=== PATIENT | male | born 1950 | race Caucasian/White ===

== ENCOUNTER 2017-07-06 15:49 | Inpatient (IN) ==
[2017-07-06] MEDS ORDERED: 0.9 % Sodium Chloride 1,000 ML IVC ONE (17:08)
--- NOTE | 2017-07-06 17:28 | Emergency Department Note ---
Disposition Clinical Impression: Ureterolithiasis, Obstructive uropathy Hydronephrosis Qualifiers: Hydronephrosis type: with renal calculous obstruction Qualified Code(s): N13.2 - Hydronephrosis with renal and ureteral calculous obstruction Disposition: Admitted As Inpatient Condition: Fair Time of Disposition: 18:00 Abdominal Pain HPI - General Chief Complaint: ED Abdominal Pain Stated Complaint: [facility]-Kidney Stone Time Seen by Provider: 07/06/17 16:19 Source: EMS Nursing Notes Reviewed: Yes Vital Signs Reviewed: Yes - History of Present Illness HPI Narrative: 67 y/o male presents to the ED via EMS from [facility] ED for left flank pain with associated N/V 2/2 ureteralilthiasis x 4 days ago found on CT in the ED here at [place]. Pt tried outpatient treatment but is unable to tolerate pain and vomiting. Pt has not been able to tolerate PO intake for the last 3 days. Pain was still 10/10 when he was seen at the [facility] ED and was treated with IV pain meds. Repeat CT shows Left 7mm stone at the UVJ. Pt currently states pain is controlled. Pt is a diabetic. Pain Scale: 0 - Related Data Previous Rx's Medication Instructions Recorded OxyCODONE/APAP 5/325 [Percocet 1 each PO Q6HR PRN 3 Days #15 07/03/17 5/325 MG] tablet Promethazine [Phenergan] 25 mg PO Q8HR #9 tablet 07/03/17 Allergies Allergy/AdvReac Type Severity Reaction Status Date / Time metformin Allergy Nausea Verified 07/06/17 15:51 All systems ED: reviewed and negative except as stated. Review of Systems: As Per HPI Constitutional: Denies: fever, chills, weakness Eyes: Denies: vision change ENT ED: Denies: congestion Cardiovascular: Denies: chest pain Respiratory: Denies: cough, dyspnea Gastrointestinal: Reports: abdominal pain, nausea, vomiting. Denies: diarrhea Musculoskeletal: Reports: back pain Abdominal Pain PMH - Past Medical History Medical history: Reports: diabetes, hypertension, kidney stones Male Surgical History: Reports: herniorrhaphy, orthopedic, other Psychiatric history: Reports: no psych history - Social History Smoking status: Never smoker Alcohol use: Reports: none Drug use: Reports: none Physical Exam Vital Signs Temperature 98.3 F 07/06/17 15:52 Pulse Rate 65 07/06/17 15:52 Respiratory Rate 18 01/12/18 15:52 Blood Pressure 130/93 07/06/17 15:52 O2 Sat by Pulse Oximetry 97 07/06/17 15:52 Temperature 98.5 F 07/06/17 18:40 Pulse Rate 62 07/06/17 18:40 Respiratory Rate 16 07/06/17 18:40 Blood Pressure 113/73 07/06/17 18:40 O2 Sat by Pulse Oximetry 96 07/06/17 18:40 Oxygen Delivery Oxygen Delivery Room Air 67 y/o male who is alert and oriented x3 and in no acute distress. VS normal with exception of bp of 130/93. Pt is nontoxic appearing but has dry mucous membranes. repeat bp 113/73 - General Limitations: no limitations General appearance: alert, in no apparent distress - Head Head exam: atraumatic, normocephalic, normal inspection - Eye Eye exam: Present: normal appearance, PERRL, EOMI - ENT ENT exam: normal exam, normal oropharynx, mucous membranes moist - Neck Neck exam: Present: normal inspection, full ROM, trachea midline - Chest Chest inspection: Present: normal inspection, symmetric chest wall rise - Respiratory Respiratory exam: Present: normal lung sounds bilaterally - Cardiovascular Cardiovascular exam: Present: regular rate, normal rhythm, normal heart sounds - Abdominal Exam Abdominal exam: Present: soft, tenderness ( left flank tenderness to palpation) . Absent: distention, guarding, rebound, rigidity - Back Exam Back exam: Present: normal inspection, full ROM, CVA tenderness (L). Absent: tenderness, CVA tenderness (R) - Neurological Exam Neurological exam: Present: alert, oriented X3 - Skin Skin exam: Present: warm, dry, intact, normal color Course Vital Signs Temperature 98.3 F 07/06/17 15:52 Pulse Rate 65 07/06/17 15:52 Respiratory Rate 18 07/06/17 15:52 Blood Pressure 130/93 07/06/17 15:52 O2 Sat by Pulse Oximetry 97 07/06/17 15:52 Temperature 98.5 F 07/06/17 18:40 Pulse Rate 62 07/06/17 18:40 Respiratory Rate 16 07/06/17 18:40 Blood Pressure 113/73 07/06/17 18:40 O2 Sat by Pulse Oximetry 96 07/06/17 18:40 Oxygen Delivery Oxygen Delivery Room Air Abdominal Pain - MDM Narrative Medical decision making narrative: Ureterolithiasis with failed outpatient management. Dr. Donohue of Urology states he will see the Pt first thing in the morning and extract the stone. He advises to tell the patient he will be the 2nd case in the morning. Urine tested at [place] and was neg for UTI Pt started on IV NS and admitted to Hospitalist. Pt understands and agrees to treatment and plan. - Medical Records Medical records reviewed: Yes I reviewed the patient's medical records. Attestation Statement - Attestation Attestation: I examined this patient and my medical decision-making was reviewed with the Resident Physician. I agree with the documented findings, disposition and treatment plan as described except to the extent set forth below. Pain-free at the time of my evaluation. Waiting for bed on the floor.
[2017-07-06] MEDS ORDERED: Ondansetron 4 MG/2 ML VIAL IVP PRN (19:41)
[2017-07-06] MEDS ORDERED: Naloxone 0.4 MG/ML INJ IVP PRN (19:41)
[2017-07-06] MEDS ORDERED: traMADol 50 MG TABLET PO PRN (19:48)
[2017-07-06] MEDS ORDERED: *HR* Morphine 2 MG/ML SYRINGE IVP PRN (19:49)
[2017-07-06] MEDS ORDERED: Dextrose Gel 15 GM/37.5 ML TUBE PO PRN ×2 (19:50)
[2017-07-06] MEDS ORDERED: *HR* Dextrose 50 % in Water (Syg) 50 ML SYRINGE IVP PRN (19:50)
[2017-07-06] MEDS ORDERED: D5% in Water 1,000 ML IVC PRN (19:50)
--- NOTE | 2017-07-06 20:03 | Urology - Consult Note ---
Date of Encounter: 07/06/17 Time of Encounter: 07:00 - Assessment and Plan (1) Ureteral stone with hydronephrosis Current Visit: Yes Status: Acute Assessment and plan: Patient has a 7 mm distal left ureteral stone which is resulted in 2 emergency room visits. Transferred to [facility] for surgical management because of intractable pain. Only appropriate option because the stone is at the ureteral vesicle junction is a ureteroscopic stone extraction with holmium laser lithotripsy and ureteral stent placement. The procedure was discussed in detail including potential risks of stricture, injury to the urinary tract, infection, stent discomfort or complications, reaction to contrast. He wishes to proceed. Trial of passage was discussed but he is not comfortable with this plan as he has required 2 emergency room visits for pain. Urology CN:HPI Consult date: 07/06/17 Reason for consult Urology: Hydronephrosis History of present illness: 67 yo transferred from the [place] with a 7 mm distal ureteral stone with hydronephrosis. Intractable pain. first presented days ago. here for surgical management Past Med Surg Social Fam HX - Past Medical History Medical history: COPD, diabetes, kidney stones Psychiatric history: no psych history - Social History Smoking Status: Former smoker Smokeless Tobacco Status: Yes (Vape) Alcohol use: rarely Drug use: none - Family History Father Living Status: Age at : 71 Cause of : Cancer Hx Family Cancer: Yes (Pancreatic with mets) Mother Living Status: Age at : 94 Hx Family Neurologic Disorders: Yes (Stroke) Medications and Allergies OxyCODONE/APAP 5/325 [Percocet 5/325 MG] 1 each PO Q6HR PRN 3 Days #15 tablet [Rx] Promethazine [Phenergan] 25 mg PO Q8HR #9 tablet 07/03/17 [Rx] 3 Allergy/AdvReac Type Severity Reaction Status Date / Time metformin Allergy Nausea Verified 07/06/17 15:51 Review of Systems - Constitutional no fever(s), no malaise - EENT Nose, mouth and throat: no dizziness - Cardiovascular no chest pain - Respiratory no cough - Gastrointestinal abdominal pain, nausea - Genitourinary flank pain, hematuria, urinary frequency - Musculoskeletal back pain - Integumentary no erythema - Neurological no confusion - Psychiatric no anxiety - Hematologic/Lymphatic no easy bleeding - Allergic/Immunologic no throat swelling Exam Initial Vital Signs Temp Pulse Resp BP Pulse Ox 98.3 F 65 18 130/93 97 07/06/17 15:52 07/06/17 15:52 07/06/17 15:52 07/06/17 15:52 07/06/17 15:52 - General physical appearance Present: well developed, no distress - Eyes Present: PERRL - ENT Present: normal nares - Neck Present: no masses - Respiratory Present: normal respiratory effort - Cardiovascular Cardiovascular exam IM: RRR - Abdomen Abdomen: Present: soft, suprapubic tenderness. Absent: masses - Integumentary Present: no rash - Neurologic Present: normal coordination. Absent: disoriented, confused - Additional Findings mild CVA tenderness Urology Results - Labs All other labs normal. Consult Discharge Plan - Plan [facility]errals: [facility] Care Provider[facility] - Chavez Alas [Family Provider] -
--- NOTE | 2017-07-06 20:07 | Internal Med History&Physical ---
<Marcela Alonzo S - Last Filed: 07/06/17 20:16> Date of Encounter: 07/06/17 Time of Encounter: 20:01 Assessment and Plan (1) Diabetes mellitus Current visit: Yes Status: Acute Hold oral medications Low-dose sliding scale insulin before meals and at bedtime Qualifiers: Diabetes mellitus type: type 2 Diabetes mellitus complication status: without complication Diabetes mellitus group home insulin use: without group home use Qualified Code(s): E11.9 - Type 2 diabetes mellitus without complications (2) Ureteral stone with hydronephrosis Current visit: Yes Status: Acute Urology consult with plan for cystoscopy and possible stone extraction in the a.m. EKG and lab work obtained for preop Nothing by mouth after midnight Pain control IV fluids A.m. lab work (3) DVT prophylaxis Current visit: Yes Status: Acute Teds and SCDs Internal Medicine - H&P: HPI Chief complaint: kidney stone with pain Admitted From: Emergency Dept Plans for Post Hospital Care: Home History of present illness: Mr. Greco is a 67 year old male This is a 67-year-old gentleman who presented from the OR to our ER with a 7 mm left kidney stone distal ureter at the uterervesicular border with significant hydronephrosis. Patient stated Sunday evening about 4:30 the pain started and lasted throughout the night he was directed by the OR to come to [facility]. He was given pain medication [facility]. He stated the pain was pretty good until last evening when the pain started again about 4:30 PM and lasted throughout the night. He went to the OR and was sent over here for urology evaluation and inpatient treatment of intractable pain. He has a history significant for diabetes mellitus, vitamin D deficiency, neuropathy, and psoriasis. He is allergic to metformin. He understands he will be nothing by mouth after midnight with urology to see him tomorrow with a pending cystoscopy and possible stone extraction. Discussed the plan of care and he has no further questions. Past Med Surg Social Fam HX - Past Medical History Medical history: diabetes, kidney stones Psychiatric history: no psych history - Social History Smoking Status: Former smoker Smokeless Tobacco Status: Yes (Vape) Alcohol use: rarely Drug use: none Occupational status: retired Current living situation: Home - Independent Activity Level: Independent ambulation - Family History Father Living Status: Age at : 71 Cause of : Cancer Hx Family Cancer: Yes (Pancreatic with mets) Mother Living Status: Age at : 94 Hx Family Neurologic Disorders: Yes (Stroke) - Additional Family History Additional family history: Reviewed and noncontributory to this event Internal Medicine - H&P: Meds OxyCODONE/APAP 5/325 [Percocet 5/325 MG] 1 each PO Q6HR PRN 3 Days #15 tablet [Rx] Promethazine [Phenergan] 25 mg PO Q8HR #9 tablet 07/03/17 [Rx] 3 Allergy/AdvReac Type Severity Reaction Status Date / Time metformin Allergy Nausea Verified 07/06/17 15:51 All Systems PM: A 10-system review of systems was performed and is negative for pertinent findings except as documented above in the HPI. - Constitutional Constitutional: night sweats, no chills, no fever(s) - EENT Eyes: no change in vision, no discharge, no pain, no photophobia Ears: no ear discharge, no ear pain, no tinnitus Nose, mouth and throat: no dysphagia, no nasal discharge, no neck pain, no sore throat - Cardiovascular Cardiovascular ROS IM: no chest pain, no diaphoresis, no dyspnea, no lightheadedness, no palpitations, no syncope - Respiratory Respiratory: no cough, no dyspnea, no wheezing, no excessive phlegm production - Gastrointestinal Gastrointestinal: no abdominal pain, no diarrhea, no hematemesis, no hematochezia, no melena, no nausea, no vomiting - Genitourinary Genitourinary ROS male: flank pain - Musculoskeletal Musculoskeletal ROS IM: no numbness, no tingling - Integumentary Integumentary IM: no rash, no unusual bruising - Neurological Neurological ROS: no confusion, no convulsions, no focal weakness, no numbness, no tingling, no tremor(s) - Hematologic/Lymphatic Hematologic/Lymphatic: no easy bruising - Constitutional Vitals: Temp Pulse Resp BP Pulse Ox 98.5 F 62 16 113/73 96 07/06/17 18:40 07/06/17 18:40 07/06/17 18:40 07/06/17 18:40 07/06/17 18:40 General appearance: Present: A&O X 3, no acute distress, answers questions appropriately - Head Head exam: Present: atraumatic, normocephalic - Eye Eye exam: Present: conjuntiva pink, sclera anicteric - Neck Neck exam general surgery: Present: supple, trachea midline. Absent: lymphadenopathy - Respiratory Respiratory exam: Present: CTAB. Absent: accessory muscle use, rales, rhonchi, wheezes - Cardiovascular Cardiovascular exam: Present: RRR, +S1, +S2. Absent: diastolic murmur, gallop, rubs, systolic murmur - GI/Abdominal GI/Abdominal exam: Present: normal bowel sounds, soft, no peritoneal signs. Absent: distended, tenderness - Extremities Exam Extremities exam: Present: warm, radial pulses palpable and symmetrical. Absent : calf tenderness, cyanotic, pedal edema - Neurological Exam Neurological exam: Present: oriented X3, no focal deficits. Absent: pronater drift, facial droop, speech deficit - Skin Skin exam: Present: dry, intact, warm Internal Med - H&P Results - Labs Labs: Calcium 8.3, sodium 140 potassium 3.9, chloride 107, glucose 103 BU in 25 creatinine 1.55 EGFR 44.9 WBCs 8.7 hemoglobin 16.1 hematocrit 47.1 platelets 170 neutrophils 72.3 lymphs 13.6 <Keisha Cui - Last Filed: 07/07/17 05:58> Date of Encounter: 07/06/17 Internal Medicine - H&P: HPI History of present illness: Mr. Greco is a 67 year old male All Systems PM: A 10-system review of systems was performed and is negative for pertinent findings except as documented above in the HPI. - Constitutional Vitals: Temp Pulse Resp BP Pulse Ox 98.2 F 63 16 105/67 95 07/07/17 03:32 07/07/17 03:32 07/07/17 03:32 07/07/17 03:32 07/07/17 03:32 Internal Med - H&P Results - Labs CBC & Chem 7: 07/07/17 03:02 Labs: BMP 07/07/17 03:02 Sodium 139 Potassium 3.7 Chloride 109 H Carbon Dioxide 24 BUN 23 Creatinine 1.10 Glucose 117 H Calcium 8.0 L Liver Function 07/07/17 Range/Units 03:02 Total Bilirubin 0.6 (0.3-1.0) mg/dL AST 11 L (13-39) Units/L ALT 11 (7-52) Units/L Alkaline Phosphatase 43 (34-104) Units/L Albumin 3.0 L (3.5-5.7) g/dL - Attending Attestation Patient is a 67y/o male admitted for flank pain secondary to ureteral stone. Pt seen and examined at bedside. Urology evaluation requested and scheduled for cystoscopy and possible stone extraction in am continue IV fluids, pain control hx of DM, holding oral antihyperglycemic agents, sliding scale insulin algorithm. Accuchecks q4h while NPO and ACHS once diet is resumed DVt ppx with SCD Case discussed with FUNMILAYO Alonzo, I agree with her documented findings, assessment, and plan except as listed above.
[2017-07-06] MEDS ORDERED: Insulin LISPRO 300 UNITS/3 ML VIAL SQ SCH (21:00)
[2017-07-06] MEDS: 0.9 % Sodium Chloride 1,000 ML IVC SCH (22:06)
[2017-07-07 04:16] LABS: INR 1.1; Prothrombin Time 12.3 Seconds (9.4-12.1)
[2017-07-07 04:17] LABS: Activated Partial Thrombo Time 28.8 Seconds (26.0-36.0)
[2017-07-07 04:22] LABS: Alanine Aminotransferase 11 Units/L (7-52); Albumin/Globulin Ratio 1.2 (1.1-2.2); Alkaline Phosphatase 43 Units/L (34-104); Aspartate Amino Transferase 11 Units/L (13-39); BUN/Creatinine Ratio 21 (6-26); Bilirubin,Total 0.6 mg/dL (0.3-1.0); Blood Urea Nitrogen 23 mg/dL (8-23); Carbon Dioxide 24 mEq/L (23-29); Chloride 109 mEq/L (98-107); Globulin 2.6 g/dL (2.4-3.5); Glucose 117 mg/dL (70-105); Osmolality,Calculated 293 (280-300); Potassium 3.7 mEq/L (3.5-5.1); Sodium 139 mEq/L (136-145); Total Protein 5.6 g/dL (6.4-8.9); eGFR For African Americans > 60 (> 60); eGFR For Non-African Americans > 60 (> 60)
[2017-07-07] MEDS: Insulin LISPRO 300 UNITS/3 ML VIAL SQ SCH ×2 (07:17→10:06)
[2017-07-07] MEDS ORDERED: Insulin LISPRO 300 UNITS/3 ML VIAL SQ SCH ×2 (07:30→14:00)
[2017-07-07] MEDS: 0.9 % Sodium Chloride 1,000 ML IVC SCH (07:42)
[2017-07-07 08:17] LABS: Basophils # 0.1 K/mcL (0.0-0.2); Basophils % 0.7 %; Eosinophils # 0.6 K/mcL (0.0-0.6); Eosinophils % 8.9 %; Hematocrit 41.3 % (37.5-50.1); Hemoglobin 13.7 g/dL (12.9-16.9); Immature Granulocytes % 0.1 % (0-4); Lymphocytes # 1.6 K/mcL (0.6-4.6); Lymphocytes % 23.4 %; Mean Corpuscular HGB Conc 33.2 g/dL (31.6-35.5); Mean Corpuscular Hemoglobin 29.6 pg (28.0-33.3); Mean Corpuscular Volume 89.2 fL (83.0-100.0); Monocytes # 0.7 K/mcL (0.0-1.3); Monocytes % 10.9 %; Neutrophils # 3.8 K/mcL (1.6-8.9); Platelet Count 153 K/mcL (140-400); Red Blood Count 4.63 M/mcL (4.19-5.50); Red Cell Distribution Width 13.2 % (11.5-14.5)
[2017-07-07] MEDS ORDERED: *HR* FentaNYL (PF) 100 MCG/2 ML VIAL ONE (08:29)
[2017-07-07] MEDS ORDERED: Ondansetron 4 MG/2 ML VIAL ONE (08:29)
[2017-07-07] MEDS ORDERED: *HR* Propofol 200 MG/20 ML VIAL IVP ONE (08:29)
[2017-07-07] MEDS ORDERED: Lidocaine -MPF 2% 2 ML VIAL ONE (08:29)
[2017-07-07] MEDS ORDERED: Dexamethasone 4 MG/ML VIAL ONE (08:29)
[2017-07-07] MEDS ORDERED: Famotidine 20 MG/2 ML VIAL ONE (08:48)
[2017-07-07] MEDS ORDERED: Acetaminophen IV 1,000 MG/100 ML INFUS..BTL ONE (08:48)
--- NOTE | 2017-07-07 08:49 | Operative Note ---
Date of procedure: 07/07/17 Pre-op diagnosis: left 7 mm distal ureteral stone Post-op diagnosis: same Procedure: left ureteroscopic stone extraction with holmium laser left retrograde pyelogram left JJ stent placement Anesthesia: GETA Surgeon: Timmy Donohue Was there an blacksmith assistant present: No Estimated blood loss (cc): 0 Specimen: stone fragments Condition: stable Disposition: PACU Procedure in Detail: PROCEDURE IN DETAIL: Patient was taken back to the operating room, positioned supine on the operating table. Anesthesia was applied without complication. They were moved into dorsal lithotomy. Careful attention was maintained to cushion all pressure points for patient's safety. They were prepped and draped in sterile fashion. Time-out was performed with the proper patient and procedure. A 21-[place] rigid cystoscope was inserted into the bladder without difficulty. Systematic examination of bladder revealed no abnormalities. The ureteral orifice was cannulated using a 5-[place] Citizen ureteral Catheter and a retrograde pyelogram was performed using Isovue. A filling defect was identified which corresponded to the stone. At that point, a zip wire was placed through the 5-[place] Citizen and confirmed in the renal pelvis with fluoroscopy. An 8-10 dilator was then placed over the zip wire to passively dilate the ureteral orifice. A semi-rigid ureteroscope was carefully inserted into the bladder and guided into the ureteral oriface. At that point, the stone was encountered and I felt that it required fragmentation for safe extraction. A 200 micron holmium laser fiber on a setting of 8 and 800 was used to fragment the stone into multiple pieces. The fragments were individually basketed out of the ureter with a 1.9 tipless basket. All stone in the ureter was removed. A 4.8 x 26 ureteral stent was placed over the zip wire under fluoroscopy without complication. The bladder was drained along with the stone fragments. They were collected and sent for stone analysis. The string was left attached to the stent and secured to the patient for easy removal in approximately 72 hours
--- NOTE | 2017-07-07 08:51 | Event Note ---
Date of Encounter: 07/07/17 Time of Encounter: 08:49 Patient status post stone extraction and stent placement. If patient's symptoms are controlled, okay to discharge today. I recommend discharging the patient with pain medication and Pyridium. No antibiotics necessary. Follow-up Sunday or Sunday for stent removal in the urology office. Patient can remove stent at home if he desires by pulling the string until the entire stent is out.
--- NOTE | 2017-07-07 08:52 | Anesthesia Evaluation PreOp ---
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: Denies Any Significant HX Other Medical History: Diabetes Type II (accu check 97) Anesthesia History: No Prior Anesthetic Complications Alcohol Use: none Drug use: none Medications and Allergies OxyCODONE/APAP 5/325 [Percocet 5/325 MG] 1 each PO Q6HR PRN 3 Days #15 tablet [Rx] Promethazine [Phenergan] 25 mg PO Q8HR #9 tablet 07/03/17 [Rx] 3 Allergy/AdvReac Type Severity Reaction Status Date / Time metformin Allergy Nausea Verified 07/06/17 15:51 - Meds/Allergy Pre-op Review Medications Reviewed: Yes Allergies Reviewed: Yes Beta Blockers on Current Med List: No Anesthesia Results - Labs 07/07/17 03:02 07/07/17 03:02 Anesthesia Exam O2 Sat Height 1.93 m Height 1.93 m Weight 125.1 kg Weight 117.48 kg O2 Sat by Pulse Oximetry 92 O2 Sat by Pulse Oximetry 95 O2 Sat by Pulse Oximetry 94 O2 Sat by Pulse Oximetry 96 O2 Sat by Pulse Oximetry 97 Vital Signs Temp Pulse Resp BP Pulse Ox 98.3 F 65 18 130/93 97 07/06/17 15:52 07/06/17 15:52 07/06/17 15:52 07/06/17 15:52 07/06/17 15:52 Height: 6'4 Weight: 275 lbs NPO (# of Hours): [place] Pain Scale: 0 - HEENT Pupil (Motor): Pupils equal, EOMI Mallampati: II Teeth: Normal Oral Opening: Greater than 3 - MORNING [employer]ER LOC: Oriented [employer]ER Motor: Normal RUE, Normal LUE, Normal RLE, Normal LLE, Normal Face [employer]ER Sensory: Normal: RUE, LUE, RLE, LLE, Face - Cardiac Rhythm: Regular Murmur: None JVD: No Carotid Bruit: No - Pulmonary Breath Sounds: bilateral Clear Respiratory Effort: Symmetrical Anesthesia Assess/Plan ASA Score: 2 Modified [place] Scale for Level of Consciousness: Cooperative, oriented, and tranquil Anesthetic Plan: General Monitoring Plan: Standard Monitors Recovery Plan: PACU (Discussed GA, agrees to proceed)
[2017-07-07] MEDS ORDERED: EPHEDrine 50 MG/ML VIAL ONE (09:35)
[2017-07-07] MEDS ORDERED: ceFAZolin 2,000 MG in Water for inj. (sterile) 20 ML IVP ONE (09:37)
--- NOTE | 2017-07-07 10:19 | Anesthesia Evaluation Post Op ---
Date of Encounter: 07/07/17 Time of Encounter: 10:30 - Vital Signs Vital Signs: Vital Signs/O2 Sat/Glucose, Most Current Temp Pulse Resp BP Pulse Ox 07/07/17 10:09 80 14 114/72 92 07/07/17 09:59 97 F L 80 12 110/69 95 07/07/17 07:34 98.8 F 66 16 115/74 92 - Lungs Lungs: Clear Ascult./Percussion - Airway Airway: Non-obstructed - Cardiovascular Regular Rate - Mental Status Mental Status: Alert & Oriented, Answers Appropriately - Pain Pain Scale: 1 - Nausea Vomiting Nausea Vomiting: Not Present - Hydration Hydration: Ice chips - Discharge PostOp Status: Transfer Patient to floor
[2017-07-07] MEDS ORDERED: D5% in Water 1,000 ML IVC PRN (11:01)
[2017-07-07] MEDS ORDERED: Ondansetron 4 MG/2 ML VIAL IVP PRN (11:01)
[2017-07-07] MEDS ORDERED: *HR* OxyCODONE/APAP 5/325 TABLET PO PRN (11:01)
[2017-07-07] MEDS ORDERED: *HR* Dextrose 50 % in Water (Syg) 50 ML SYRINGE IVP PRN (11:01)
[2017-07-07] MEDS ORDERED: *HR* Morphine 2 MG/ML SYRINGE IVP PRN (11:01)
[2017-07-07] MEDS ORDERED: Dextrose Gel 15 GM/37.5 ML TUBE PO PRN ×2 (11:01)
[2017-07-07] MEDS ORDERED: 0.9 % Sodium Chloride 1,000 ML IVC SCH (11:01)
[2017-07-07] MEDS ORDERED: Naloxone 0.4 MG/ML INJ IVP PRN (11:01)
[2017-07-07] MEDS ORDERED: Ketorolac 15 MG/ML VIAL IVP PRN (11:01)
--- NOTE | 2017-07-07 12:59 | Discharge Summary ---
Date of Encounter: 07/07/17 Time of Encounter: 12:57 - Discharge Diagnosis (1) Ureteral stone with hydronephrosis Priority: Primary Status: Acute Comments: Left ureteral stone 7 mm with hydronephrosis status post stone extraction and stent placement. (2) Diabetes mellitus Priority: Secondary Status: Acute Qualifiers: Diabetes mellitus type: type 2 Diabetes mellitus complication status: without complication Diabetes mellitus fdc insulin use: without fdc use Qualified Code(s): E11.9 - Type 2 diabetes mellitus without complications (3) Obstructive uropathy Priority: Primary Status: Acute - Discharge Medications Prescriptions: OxyCODONE/APAP 5/325 [Percocet 5/325 MG] 1 each PO Q4HR PRN #25 tablet PRN Reason: Moderate Pain Phenazopyridine [Pyridium] 200 mg PO TID PRN #20 tablet PRN Reason: See Comments Home Medications: Empagliflozin [Jardiance] 10 mg PO DAILY 07/07/17 [History] GlipiZIDE [Glipizide Xl] 5 mg PO DAILY 07/07/17 [History] Lisinopril [Zestril] 5 mg PO DAILY 07/07/17 [History] OxyCODONE/APAP 5/325 [Percocet 5/325 MG] 1 each PO Q4HR PRN #25 tablet 07/07/17 [Rx] Phenazopyridine [Pyridium] 200 mg PO TID PRN #20 tablet 07/07/17 [Rx] Saxagliptin HCl [Onglyza] 5 mg PO DAILY 07/07/17 [History] Allergies/Adverse Reactions: 3 Allergy/AdvReac Type Severity Reaction Status Date / Time metformin Allergy Nausea Verified 07/06/17 15:51 Procedures/tests Complete & Pending: Procedures Performed prior 72 hours Category Date Time Status EKG [ECG 12 lead ECG] [ECG] Routine Y 07/06/17 19:57 Ordered Date of admission: 07/06/17 18:01 Primary care physician: PCP ARGENIS - Patient Status Disposition: Home, Self-Care Condition: Fair Overall status at discharge: patient is back to baseline - Discharge Instructions Follow Up With: ARGENIS,PCP [Primary Care Provider] - Chavez Alas [Family Provider] - Additional Instructions: Follow-up Sunday or Sunday for stent removal in the urology office. Patient can remove stent at home if he desires by pulling the string until the entire stent is out. Continue Percocet as needed and Pyridium for urinary symptoms. Increase fluid intake - Diet and Activity Activity: increase activity as tolerated Diet: diabetic diet Hospital course: Mr. Greco is a 67 year old male with a past medical history of diabetes type 2 not insulin-dependent, vitamin D deficiency, neuropathy, and psoriasis, nephrolithiasis recurrent from 10 years ago, former smoker, who presented from the OR to our ER with a 7 mm left kidney stone distal ureter at the uterervesicular border with significant hydronephrosis. Patient stated Sunday evening about 4:30 the pain started and lasted throughout the night he was directed by the OR to come to [facility]. He was given pain medication and presented to the OR on Sunday as directed. He stated the pain was pretty good until last evening when the pain started again about 4:30 PM and lasted throughout the night. He went to the OR and was sent over here for urology evaluation and inpatient treatment of intractable pain. He is allergic to metformin. The patient underwent a ureteral stone extraction by the urology service with a left ureteral stent placement. Currently he is asymptomatic and will be discharged home. - Time Spent with Patient Total time spent providing and/or coordinating discharge services: Greater than 30 minutes (40 min) - Constitutional Vitals: Temp Pulse Resp BP Pulse Ox 98.1 F 71 16 110/74 94 07/07/17 10:47 07/07/17 11:45 07/07/17 11:45 07/07/17 11:45 07/07/17 11:45 General appearance: Present: A&O X 3, no acute distress, answers questions appropriately - Head Head exam: Present: atraumatic, normocephalic - Eye Eye exam: Present: PERRL, conjuntiva pink, sclera anicteric Pupils: Present: PERRL - Neck Neck exam general surgery: Present: supple, trachea midline. Absent: lymphadenopathy - Respiratory Respiratory exam: Present: CTAB. Absent: accessory muscle use, rales, rhonchi, wheezes - Cardiovascular Cardiovascular exam: Present: RRR, +S1, +S2. Absent: diastolic murmur, gallop, rubs, systolic murmur - GI/Abdominal GI/Abdominal exam: Present: normal bowel sounds, soft, no peritoneal signs. Absent: distended, tenderness - Extremities Exam Extremities exam: Present: warm, radial pulses palpable and symmetrical. Absent : calf tenderness, cyanotic, pedal edema - Neurological Exam Neurological exam: Present: CN II-XII intact, oriented X3, no focal deficits. Absent: pronater drift, facial droop, speech deficit - Skin Skin exam: Present: dry, intact - VTE Documentation of Mechanical Device: Intermittent pneumatic compression device
[2017-07-07 14:32] VITALS: BP 116/73
--- NOTE | 2017-07-09 15:26 | Electrocardiograph Report ---
[place] [id number] Test Date: 2017-07-07 Pat Name: Donovan Greco Department: 113 Room: 3B23 Gender: M [employer] Assistant: : [id number] Requested By: Marcela Alonzo Order Number: [id number] Reading MD: Clau Petersen Measurements Intervals [place] Rate: 60 P: 68 NC: 186 QRS: -28 QRSD: 122 T: 12 QT: 418 QTc: 420 Interpretive Statements SINUS RHYTHM BORDERLINE LEFT AXIS DEVIATION INTRAVENTRICULAR CONDUCTION DELAY Electronically Signed On 07-09-2017 15:24:31 EST by Clau Petersen
== END 2017-07-07 15:24 | disposition home or self-care (01) | DRG 669 ==
LOC: EMEROO 15:49 → 3BNU 18:01
PROVIDERS: ADMIT Internal Medicine; ATTEND Registered Nurse